=== PATIENT | female | born 1995 | race Caucasian/White ===

== ENCOUNTER 2018-09-17 10:42 | Day surgery (SDC) | payer OTHER ==
[2018-09-17] MEDS ORDERED: CEFAZOLIN 2 GM/50 ML (PMX) 50 ML IVPB (12:00)
[2018-09-17] MEDS ORDERED: SOD CHLORIDE 0.9% 1,000 ML IV (12:00)
[2018-09-17] MEDS ORDERED: BUPIVACAINE 0.25% (MPF) 30 ML INJ (17:03)
[2018-09-17] MEDS ORDERED: MIDAZOLAM 1 MG/ML 2 ML INJ (17:26)
[2018-09-17] MEDS ORDERED: CEFAZOLIN 1 GM INJ (17:27)
[2018-09-17] MEDS ORDERED: HYDROmorphONE 1 MG/5 ML IV SYRINGE IV (17:30)
[2018-09-17] MEDS: BUPIVACAINE 0.5% (SDV) 30 ML INJ (17:42)
[2018-09-17] MEDS: LIDOCAINE 2% (MDV) 20 ML INJ (17:44)
[2018-09-17] MEDS ORDERED: ACETAMINOPHEN 325 MG TAB PO (18:00)
== END 2018-09-17 20:13 | disposition home or self-care (01) ==
LOC: SDS 10:42
DX: L72.0 Epidermal cyst (principal)
CPT/HCPCS: 14000; 84703; 88307

== ENCOUNTER 2019-07-19 02:57 | Emergency (ER) | payer OTHER ==
[2019-07-19] MEDS: METOCLOPRAMIDE 10 MG INJ IV (03:47)
[2019-07-19] MEDS: morphine 4 MG/ML VIAL IV (03:48)
[2019-07-19] MEDS: SOD CHLORIDE 0.9% 1,000 ML IV (03:52)
== END 2019-07-19 04:53 | disposition home or self-care (01) ==
LOC: FTE 02:57
DX: R51 Headache (principal); L03.011 Cellulitis of right finger
CPT/HCPCS: 81025; 96374; 96375; 99284-25